=== PATIENT | male | born 2000 | race Two or more races ===

== ENCOUNTER 2024-05-10 09:59 | Emergency (ER) | payer OTHER ==
[~2024-05-10] VITALS: Ht 185.4 cm; Wt 110.8 kg
[2024-05-10] MEDS ORDERED: LEXA1TAB2 PO (10:10)
[2024-05-10] MEDS ORDERED: AMIT75TA PO (10:10)
[2024-05-10] MEDS ORDERED: PROP40TA62 PO (10:10)
[2024-05-10] MEDS ORDERED: GABA-282 PO (10:10)
[2024-05-10 13:03] VITALS: BP 126/60; TEMP 97.9; O2SAT 98
== END 2024-05-10 13:06 | disposition home or self-care (01) ==
LOC: M ED 09:59
DX: S80.01XA Contusion of right knee, initial encounter (principal); Y92.9 Unspecified place or not applicable; Y93.9 Activity, unspecified; Y99.9 Unspecified external cause status; Z79.899 Other long term (current) drug therapy